=== PATIENT | male | born 1955 | race Caucasian/White ===

== ENCOUNTER → 2024-11-05 11:29 | Outpatient (REF) | payer MEDICARE, OTHER, SELFPAY | LOC: HWRAD 11:29 | PROVIDERS: ATTENDING PHYSICIAN Family Medicine | DX: R10.84 Generalized abdominal pain (principal); K43.9 Ventral hernia without obstruction or gangrene; R22.42 Localized swelling, mass and lump, left lower limb | CPT/HCPCS: 76700; 76882 ==

== ENCOUNTER → 2024-11-13 09:45 | Outpatient (REF) | payer MEDICARE, OTHER, SELFPAY | LOC: HWRAD 09:45 | PROVIDERS: ATTENDING PHYSICIAN Family Medicine | DX: N13.30 Unspecified hydronephrosis (principal); N28.1 Cyst of kidney, acquired | CPT/HCPCS: 74176 ==

== ENCOUNTER → 2024-12-26 09:52 | Outpatient (REF) | payer MEDICARE, OTHER, SELFPAY | LOC: SDSPAT 09:52 | PROVIDERS: ATTENDING PHYSICIAN Surgery; FAMILY PHYSICIAN Family Medicine | DX: K40.90 Unilateral inguinal hernia, without obstruction or gangrene, not specified as recurrent (principal) | CPT/HCPCS: 36415; 93005 ==

== ENCOUNTER 2024-12-27 06:21 | Day surgery (SDC) | payer MEDICARE, OTHER, SELFPAY ==
[2024-12-26 14:00] VITALS: BMI 25.3
[2024-12-27] VITALS (9 sets, daily range): BP systolic 0–155; BP diastolic 65–95; BMI 25.3
[2024-12-27] MEDS: TYLENOL 1000 MG PO (10:43)
[2024-12-27] MEDS: NORMOSOL-R/PLASMALYTE-A 1000 IV (10:44)
--- NOTE | 2024-12-27 10:50 | W.SUR.PREOP ---
Pre-Operative Surgical Note
-
I have examined this patient prior to the performance of the scheduled procedure.
The patient's condition is unchanged from the time of the current History and
Physical and the patient is able to undergo the scheduled procedure.
--- NOTE | 2024-12-27 12:51 | W.IMMPOSTOP ---
Surgical Immed Post Op Note
-
Primary Surgeon: Cesar Russ MD
Assisting Surgeon: None
Pre-op Diagnosis: Left incarcerated inguinal hernia
Post-op Diagnosis: Same
Procedure Performed:
1. Left incarcerated inguinal hernia repair with mesh
2. Pragmatic left inguinal neurectomy
Anesthesia Type: General
Specimen / Cultures: Left ileoinguinal nerve
Estimated Blood Loss: 3 cc
Complications: None
Operative Findings: Large incarcerated direct inguinal hernia containing preperitoneal fat and bladder, reduced and the floor will imbricated with interrupted 0 PDS [id number] sutures. There was a small cord lipoma that was removed. No
indirect component to the hernia. The floor was then reinforced with a Bard soft uncoated polypropylene mesh cut the size. Given the size of the hernia and space, a 15 Yi round Jere drain was inserted laterally to drain the space above
the external obliques down into the scrotum.
--- NOTE | 2024-12-27 13:48 | OR.RPT ---
Addendum entered and electronically signed by Cesar Russ MD 12/27/24 14:04:
To add under the details of the operation:
After closing the external oblique fascia, a 15 Croatian round Jere drain was inserted through a stab incision lateral to the incision and tunneled in the subcutaneous space down to the scrotum to decrease the risk of postoperative seroma. This was
secured to the skin with a 2-0 nylon suture.
Original Note:
Operative Report
Operative Report
Patient Name: Manan Choudhury
: 1955
Date of Operation: 12/27/2024
Preoperative Diagnosis: Incarcerated left inguinal hernia
Postoperative Diagnosis: Same
Procedure(s):
Open incarcerated left inguinal hernia Repair with mesh
Pragmatic left inguinal neurectomy
Surgeon(s):
Dr. Russ
Copper Miner(s):
CHAPARRO Kurtz
Anesthesia: General
Estimated Blood Loss: 3 cc
Urine Output: None
Drains/Lines/Implants: 3 x 6 inch Bard soft mesh cut to size
Specimens: None
Indication for surgery: The patient has a history of groin pain and some asymmetry noted on exam and was found to have a left inguinal Hernia. Following review of therapeutic options they has elected to undergo an open repair
Operative Findings: Large incarcerated direct inguinal hernia containing preperitoneal fat and bladder, reduced and the floor will imbricated with interrupted 0 PDS [id number] sutures. There was a small cord lipoma that was removed. No
indirect component to the hernia. The floor was then reinforced with a Bard soft uncoated polypropylene mesh cut the size. Given the size of the hernia and space, a 15 Croatian round Jere drain was inserted laterally to drain the space above
the external obliques down into the scrotum.
Details of the operation:
After induction of general anesthesia, the patient was clipped, prepped and draped in the supine position. A team timeout was performed confirming administration of DVT prophylaxis, IV antibiotics and SCDs. The ASIS and pubic tubercle were marked
and an incision was chosen along the course of a skin line. The skin was anesthetized with Lidocaine. An incision was made through the skin line and dissection carried down through subcutaneous tissue and Sonja's fascia. The superficial epigastric
vein was identified and ligated. A Small Jeremy wound retractor was used to provide exposure. The external oblique fibers were then divided in the direction of travel. The ilioinguinal nerve was identified and resected pragmatically. Dissection was
carried down to the floor, which revealed the following:
A large direct defect containing incarcerated preperitoneal fat and bladder which was reduced and then closed in a Bassini fashion using interrupted 0 PDS [id number] sutures.
There was no indirect component but there was a small cord lipoma which was ligated at its stalk and resected.
The ilioinguinal nerve was identified and ligated in a pragmatic fashion as it exited the internal obliques. This was sent as a specimen.
The floor of the canal was then reconstructed by placing a 6x3 in BARD soft polypropylene mesh trimmed to size and secured it in place with interrupted 0-PDS sutures medially at the pubic tubercle, inferiorly along the inguinal ligament,
laterally/superiorly in the conjoint tendon. A slit was made in the mesh just wide enough to accommodate the cord this was also reapproximated with the PDS suture. Care was taken not to injure or entrap any nerves. The external oblique fibers were
then closed using a running 2-0 Vicryl suture. Sonja's fascia was then closed with interrupted 3-0 Vicryl suture. The skin was closed in layers with interrupted 3-0 vicryl deep dermals followed by a running subcuticular 4-0 Monocryl followed by
dermabond. The patient returned to the Recovery Room in stable condition. Sponge and instrument counts were correct.
I was the attending physician and performed the procedure with assistance of the PA above. The assistance of CHAPARRO Kurtz was required due to the complexity of the procedure. During the procedure Yari assisted with retraction, resection, and
closure of the wound. I was present for all portions of the case, excluding skin closure
.Cesar Russ MD
== END 2024-12-27 13:35 | disposition home or self-care (01) ==
LOC: SDS 06:21
PROVIDERS: ATTENDING PHYSICIAN Surgery; FAMILY PHYSICIAN Family Medicine
DX: K40.30 Unilateral inguinal hernia, with obstruction, without gangrene, not specified as recurrent (principal)
CPT/HCPCS: 49507; 88304; C1729

== ENCOUNTER → 2025-01-09 10:53 | Outpatient (REF) | payer MEDICARE, OTHER, SELFPAY | LOC: HWRAD 10:53 | PROVIDERS: ATTENDING PHYSICIAN Internal Medicine Nephrology; FAMILY PHYSICIAN Family Medicine | DX: R79.89 Other specified abnormal findings of blood chemistry (principal); N28.89 Other specified disorders of kidney and ureter; N18.2 Chronic kidney disease, stage 2 (mild) | CPT/HCPCS: 76770 ==